=== PATIENT | female | born 1955 | race Caucasian/White ===

== ENCOUNTER → 2018-11-10 | Outpatient (CLI) | payer OTHER ==
--- NOTE | 2018-11-11 06:46 | SP ---
DATE OF PROCEDURE: 11/10/2018 INDICATION: The patient is a 63-year-old lady with history of intractable seizures and dementia. She is on Vimpat. DESCRIPTION OF PROCEDURE: Routine outpatient EEG was recorded digitally. Qrlnt-so-slfan and scalp-t o-ear montages were recorded and reviewed. All impedances were measured and recorded. Cap electrode s were placed in accordance to International 10-20 system of electrode placement. Symmetrically distributed background activity ranging in frequency between 8 to 10 cycles per second of low to medium amplitude was seen. Photic stimulation produces no definite driving. Hyperventilat ion elicits no epileptiform activity. There are several episodes throughout the recording of presenc e of left temporal either sharp waves slightly extending out from the background or at times backgrou nd seemed to intermix with slower waves 2 to 4 cycles per second over the left temporal area. No sig ns of ongoing electrographic seizures. IMPRESSION: Abnormal study secondary to presence of occasional infrequent, not rhythmical, left temp oral slowing or presence of left temporal sharp waves which in context of patient's clinical history could reflect epileptiform focus in the left temporal area. Please correlate clinically and with ruben knott. Continue anti-seizure prophylaxis. Dictated By: DANIEL LEVI/ANDREA Conf#: [id number] DID#: [id number]
== END | disposition home or self-care (01) ==
LOC: EEG 10:55
PROVIDERS: ATTEND Family Medicine Adult Medicine
DX: G40.909 Epilepsy, unspecified, not intractable, without status epilepticus (principal)
CPT/HCPCS: 95819